=== PATIENT | female | born 1990 | race American Indian/Alaskan Native ===

== ENCOUNTER 2021-10-22 21:22 | Emergency (ER) | payer MEDICAID ==
[2021-10-22 21:37] VITALS: BP 117/62
[2021-10-22 23:33] LABS: Color,Urine Yellow (Yellow)
[2021-10-22 23:37] LABS: Mucus,Urine 3+ /HPF
[2021-10-22 23:38] LABS: HCG Qualitative,Urine Negative (Negative)
== END 2021-10-23 00:45 | disposition left against medical advice (07) ==
LOC: ED 21:22
DX: R10.9 Unspecified abdominal pain (principal); Z53.21 Procedure and treatment not carried out due to patient leaving prior to being seen by health care provider
CPT/HCPCS: 81001; 81025